=== PATIENT | female | born 1990 | race Caucasian/White ===

== ENCOUNTER 2020-08-25 08:22 | Emergency (ER) | payer SELFPAY ==
[~2020-08-25] VITALS: Ht 165.1 cm; Wt 45.1 kg
[2020-08-25 08:40] VITALS: BP 126/76
[2020-08-25] MEDS ORDERED: KETOROLAC 30 MG/ML VIAL IM ONE (09:20)
[2020-08-25] MEDS ORDERED: ACETAMINOPHEN EXTRA STRENGTH 500 MG TAB PO ONE (09:20)
[2020-08-25 12:00] VITALS: BP 125/74
== END 2020-08-25 12:00 | disposition home or self-care (01) ==
LOC: MED 08:22
DX: R51.9 Headache, unspecified (principal); R50.9 Fever, unspecified; R05 Cough; Z20.822 Contact with and (suspected) exposure to COVID-19
CPT/HCPCS: 81002; 81025; 96372; 99283; J1885; U0003